=== PATIENT | male | born 1985 | race Hispanic/Latino ===

== ENCOUNTER 2017-05-20 17:32 | Emergency (ER) | payer SELFPAY ==
--- OUTSIDE RECORDS SUMMARY | 2017-05-20 17:34 | XMS REPORT ---
:1985 [facility] Address [address] [place] [address] Care Team Providers Name Role Phone Unavailable Unavailable Unavailable Problems This patient has no known problems. Allergies, Adverse Reactions, Alerts This patient has no known allergies or adverse reactions. Medications This patient has no known medications. Encounters Start End Encounter Admission Attending Care Care Encounter Date/Time Date/Time Type Type Clinicians Facility Department ID 2016-09-30 2016-10-05 Outpatient [facility] [id number] 00:00:00 00:00:00
[2017-05-20] MEDS ORDERED: CYCLOBENZAPRINE 10 MG TAB ONE (20:05)
[2017-05-20] MEDS ORDERED: HYDROCODONE/APAP 10/325 TAB ONE (20:06)
[2017-05-20] MEDS ORDERED: IBUPROFEN 400 MG TAB ONE (20:06)
--- NOTE | 2017-05-20 20:14 | ER ---
Nurse's Notes [facility] Name: Kurtis Albert Jr Age: 32 yrs Sex: Male : 1985 Arrival Date: 05/20/2017 Time: 17:35 Bed 14 Private MD: Diagnosis: Lumbago with sciatica, left side Presentation: 05/20 18:00 Presenting complaint: Patient states: Low back pain that started today at 1500. aj Transition of care: patient was not received from another setting of care. Onset of symptoms was May 20, 2017. Care prior to arrival: None. 18:00 Method Of Arrival: Ambulatory aj 18:00 Acuity: GOGO 4 aj Triage Assessment: 18:02 General: Appears in no apparent distress. comfortable, Behavior is calm, cooperative, aj appropriate for age. Pain: Complains of pain in low back area Pain currently is 8 out of 10 on a pain scale. Neuro: Level of Consciousness is awake, alert, obeys commands, Oriented to person, place, time, situation. Respiratory: Airway is patent Respiratory effort is even, unlabored, Respiratory pattern is regular, symmetrical. Derm: Skin is intact, is healthy with good turgor, Skin is pink, warm \T\ dry. normal. Musculoskeletal: Reports pain in low back area. Historical: - Allergies: 18:02 No Known Allergies; aj - Home Meds: 18:02 None [Active]; aj - PMHx: 18:02 None; aj - PSHx: 18:02 None; aj - Immunization history:: Adult Immunizations up to date. - Social history:: Smoking status: Patient/guardian denies using tobacco. Screenin:23 Abuse screen: Denies threats or abuse. Nutritional screening: No deficits noted. rb1 Tuberculosis screening: No symptoms or risk factors identified. Fall Risk None identified. Assessment: 18:23 General: Appears uncomfortable, Behavior is calm, cooperative, Denies fever. Pain: rb1 Complains of pain in left lower back Pain radiates to left leg Pain currently is 8 out of 10 on a pain scale. Aggravated by repositioning. Neuro: Level of Consciousness is awake, alert, obeys commands, Oriented to person, place, time, situation. Cardiovascular: Capillary refill < 3 seconds is brisk in bilateral fingers. Respiratory: Airway is patent Respiratory effort is even, unlabored, Respiratory pattern is regular, symmetrical. GI: No signs and/or symptoms were reported involving the gastrointestinal system. : No signs and/or symptoms were reported regarding the genitourinary system. Derm: Skin is pink, warm \T\ dry. Musculoskeletal: Range of motion: intact in all extremities. 19:15 Reassessment: Patient appears in no apparent distress at this time. Patient and/or bs1 family updated on plan of care and expected duration. Pain level reassessed. Patient is alert, oriented x 3, equal unlabored respirations, skin warm/dry/pink. Report received from NAHUN Lopez. Patient still c/o pain. Pending orders from ROSE GRADING SUPERVISOR. Vital Signs: 18:02 BP 134 / 92; Pulse 57; Resp 18; Temp 97.6; Pulse Ox 98% on R/A; Weight 122.47 kg; aj Height 5 ft. 10 in. (177.80 cm); Pain 8/10; 19:15 BP 139 / 86; Pulse 58; Resp 17; Pulse Ox 99% on R/A; Pain 6/10; bs1 18:02 Body Mass Index 38.74 (122.47 kg, 177.80 cm) aj ED Course: 17:35 Patient arrived in ED. rg4 18:01 Triage completed. aj 18:02 Arm band placed on left wrist. Patient placed in waiting room, Patient notified of wait aj time. 18:23 Patient has correct armband on for positive identification. Bed in low position. Call rb1 light in reach. Side rails up X 1. Pulse ox on. NIBP on. 18:25 Jessica Penaloza, NAHUN is Primary Nurse. rb1 18:45 Aashish Valdez NP is PHCP. pm1 18:45 Jorge L Rosas MD is Attending Physician. pm1 18:57 Report given to NAHUN Green. rb1 20:24 No provider procedures requiring assistance completed. Patient did not have IV access ao during this emergency room visit. Administered Medications: 19:49 Drug: Flexeril 10 mg Route: PO; ao 20:25 Follow up: Response: No adverse reaction ao 19:49 Drug: [place] 10 mg-325 mg 1 tabs Route: PO; ao 20:25 Follow up: Response: No adverse reaction ao 19:49 Drug: Ibuprofen 800 mg Route: PO; ao 20:25 Follow up: Response: No adverse reaction ao Outcome: 20:14 Discharge ordered by . pm1 20:24 Discharged to home ambulatory. ao 20:24 Condition: stable 20:24 Discharge instructions given to patient, Instructed on discharge instructions, follow up and referral plans. Demonstrated understanding of instructions, follow-up care, medications, Prescriptions given X 3. 20:25 Patient left the ED. ao Signatures: Britney Gómez, RN RN Jessica García RN RN rb1 Peter Tidwell RN RN ao Aashish Valdez, ROSE GRADING SUPERVISOR ROSE GRADING SUPERVISOR pm1 Kylie Alfredo rg4 Yareli Robison RN RN bs1
--- NOTE | 2017-05-20 20:15 | EDPHYS ---
Physician Documentation [facility] Name: Kurtis Albert Jr Age: 32 yrs Sex: Male : 1985 Arrival Date: 05/20/2017 Time: 17:35 Bed 14 Private MD: ED Physician Jorge L Rosas HPI: 05/20 20:00 This 32 yrs old Male presents to ER via Ambulatory with complaints of Low Back pm1 Pain. 20:00 The symptoms are located in the left low back. radiation to left lower leg. Associated pm1 signs and symptoms: Pertinent negatives: abdominal pain, chest pain, fever, incontinence, shortness of breath. Patient with a history of chronic back pain that has some flares. Patient reports onset of pain this morning and he wanted to get ahead of the pain before it got worse. Patient with the same presentation of back pain as the past, which is left lower back pain with radiation to left lower leg. Pain aggravated by twisting and bending. Historical: - Allergies: 18:02 No Known Allergies; aj - Home Meds: 18:02 None [Active]; aj - PMHx: 18:02 None; aj - PSHx: 18:02 None; aj - Immunization history:: Adult Immunizations up to date. - Social history:: Smoking status: Patient/guardian denies using tobacco. ROS: 20:00 Constitutional: Negative for fever, chills, and weight loss, Eyes: Negative for injury, pm1 pain, redness, and discharge, ENT: Negative for injury, pain, and discharge, Neck: Negative for injury, pain, and swelling, Cardiovascular: Negative for chest pain, palpitations, and edema, Respiratory: Negative for shortness of breath, cough, wheezing, and pleuritic chest pain, Abdomen/GI: Negative for abdominal pain, nausea, vomiting, diarrhea, and constipation. 20:00 : Negative for injury, bleeding, discharge, and swelling, MS/Extremity: Negative for injury and deformity, Skin: Negative for injury, rash, and discoloration, Neuro: Negative for headache, weakness, numbness, tingling, and seizure. 20:00 Back: Positive for of the left low back, pain. Exam: 20:00 Constitutional: This is a well developed, well nourished patient who is awake, alert, pm1 and in no acute distress. Head/Face: Normocephalic, atraumatic. Eyes: Pupils equal round and reactive to light, extra-ocular motions intact. Lids and lashes normal. Conjunctiva and sclera are non-icteric and not injected. Cornea within normal limits. Periorbital areas with no swelling, redness, or edema. ENT: Nares patent. No nasal discharge, no septal abnormalities noted. Tympanic membranes are normal and external auditory canals are clear. Oropharynx with no redness, swelling, or masses, exudates, or evidence of obstruction, uvula midline. Mucous membranes moist. Neck: Trachea midline, no thyromegaly or masses palpated, and no cervical lymphadenopathy. Supple, full range of motion without nuchal rigidity, or vertebral point tenderness. No Meningismus. Chest/axilla: Normal chest wall appearance and motion. Nontender with no deformity. No lesions are appreciated. Cardiovascular: Regular rate and rhythm with a normal S1 and S2. No gallops, murmurs, or rubs. Normal PMI, no JVD. No pulse deficits. Respiratory: Lungs have equal breath sounds bilaterally, clear to auscultation and percussion. No rales, rhonchi or wheezes noted. No increased work of breathing, no retractions or nasal flaring. Abdomen/GI: Soft, non-tender, with normal bowel sounds. No distension or tympany. No guarding or rebound. No evidence of tenderness throughout. 20:00 Skin: Warm, dry with normal turgor. Normal color with no rashes, no lesions, and no evidence of cellulitis. MS/ Extremity: Pulses equal, no cyanosis. Neurovascular intact. Full, normal range of motion. 20:00 Back: pain, of the left low back, ROM is painful, with rotation to the right, with rotation to the left, with flexion, normal spinal alignment noted. 20:00 Neuro: Orientation: is normal, Motor: is normal, moves all fours, strength is normal, strength is 5/5 in all extremities. Vital Signs: 18:02 BP 134 / 92; Pulse 57; Resp 18; Temp 97.6; Pulse Ox 98% on R/A; Weight 122.47 kg; aj Height 5 ft. 10 in. (177.80 cm); Pain 8/10; 19:15 BP 139 / 86; Pulse 58; Resp 17; Pulse Ox 99% on R/A; Pain 6/10; bs1 18:02 Body Mass Index 38.74 (122.47 kg, 177.80 cm) rigoberto MDM: 18:45 Patient medically screened. pm1 20:13 Data reviewed: vital signs. Data interpreted: Pulse oximetry: on room air is 99 %. pm1 Interpretation: normal. Counseling: I had a detailed discussion with the patient and/or guardian regarding: the historical points, exam findings, and any diagnostic results supporting the discharge/admit diagnosis. Medication response: pain improvement with medications given in the ER. Administered Medications: 19:49 Drug: Flexeril 10 mg Route: PO; ao 20:25 Follow up: Response: No adverse reaction ao 19:49 Drug: [place] 10 mg-325 mg 1 tabs Route: PO; ao 20:25 Follow up: Response: No adverse reaction ao 19:49 Drug: Ibuprofen 800 mg Route: PO; ao 20:25 Follow up: Response: No adverse reaction ao Disposition: 05/21 07:41 Co-signature as Attending Physician, Jorge L Rosas MD I agree with the assessment and waqar plan of care. Disposition: 05/20/17 20:14 Discharged to Home. Impression: Lumbago with sciatica, left side. - Condition is Stable. - Discharge Instructions: Back Pain, Adult, Sciatica. - Prescriptions for Naprosyn 500 mg Oral Tablet - take 1 tablet by ORAL route 2 times per day take with food; 30 tablet. Tylenol- Codeine #3 300-30 mg Oral Tablet - take 2 tablets by ORAL route every 6 hours As needed; 20 tablet. Cyclobenzaprine 10 mg Oral Tablet - take 1 tablet by ORAL route every 8 hours As needed; 30 tablet. - Medication Reconciliation Form, Thank You Letter, Prescription Opioid Use form. - Follow up: Emergency Department; When: As needed; Reason: Worsening of condition. Follow up: Private Physician; When: 2 - 3 days; Reason: Recheck today's complaints, Continuance of care, Re-evaluation by your physician. - Problem is new. - Symptoms have improved. Signatures: Britney Gómez RN Jorge L Paula MD MD cha Ortiz, Alex RN Aashish Bautista, YOSELYN MEDICAL RECORD CONSULTANT pm1
== END 2017-05-20 20:25 | disposition home or self-care (01) ==
LOC: ER 17:32
DX: M54.42 Lumbago with sciatica, left side (principal)
CPT/HCPCS: 99283

== ENCOUNTER 2017-06-09 15:46 | Emergency (ER) | payer SELFPAY ==
--- OUTSIDE RECORDS SUMMARY | 2017-06-09 15:48 | XMS REPORT ---
:1985 [facility] Address [address] [place] [address] Care Team Providers Name Role Phone Unavailable Unavailable Unavailable Problems This patient has no known problems. Allergies, Adverse Reactions, Alerts This patient has no known allergies or adverse reactions. Medications This patient has no known medications. Encounters Start End Encounter Admission Attending Care Care Encounter Date/Time Date/Time Type Type Clinicians Facility Department ID 2016-09-30 2016-10-05 Outpatient [facility] [id number] 00:00:00 00:00:00
[2017-06-09] MEDS ORDERED: TRAMADOL HCL 50 MG TAB ONE (17:28)
--- NOTE | 2017-06-09 18:01 | EDPHYS ---
Physician Documentation [facility] Name: Kurtis Albert Jr Age: 32 yrs Sex: Male : 1985 Arrival Date: 06/09/2017 Time: 15:49 Bed Treatment Private MD: ED Physician Arsenio Wallace HPI: 06/09 17:25 This 32 yrs old Male presents to ER via Ambulatory with complaints of Back pm1 Pain. 17:25 The patient presents with pain that is chronic, with no known mechanism of injury. The pm1 symptoms are located in the low back. Onset: The symptoms/episode began/occurred 2 week(s) ago. bilateral lower legs. Associated signs and symptoms: Pertinent negatives: abdominal pain, chest pain, dysuria, numbness, tingling, vomiting. Chronic back pain with occasional flare up. Patient with complaints of lower back pain onset two weeks ago. Patient with complaints of sore throat onset yesterday with painful swallowing, fever, and body aches.. Historical: - Allergies: 16:01 No Known Allergies; rk2 - Immunization history:: Pneumococcal vaccine is up to date, Flu vaccine is not up to date. - Social history:: Smoking status: Patient/guardian denies using tobacco, never smoked. ROS: 17:25 Eyes: Negative for injury, pain, redness, and discharge. pm1 17:25 Neck: Negative for injury, pain, and swelling, Cardiovascular: Negative for chest pain, palpitations, and edema, Respiratory: Negative for shortness of breath, cough, wheezing, and pleuritic chest pain, Abdomen/GI: Negative for abdominal pain, nausea, vomiting, diarrhea, and constipation. 17:25 : Negative for injury, bleeding, discharge, and swelling, MS/Extremity: Negative for injury and deformity, Skin: Negative for injury, rash, and discoloration, Neuro: Negative for headache, weakness, numbness, tingling, and seizure. 17:25 Constitutional: Positive for body aches, chills, fever, Negative for poor PO intake. 17:25 ENT: Positive for sore throat, Negative for ear pain, rhinorrhea, sinus congestion, sinus pain, dental pain, difficulty swallowing, difficulty handling secretions. 17:25 Back: Positive for Low back pain. Exam: 17:25 Constitutional: This is a well developed, well nourished patient who is awake, alert, pm1 and in no acute distress. Head/Face: Normocephalic, atraumatic. Eyes: Pupils equal round and reactive to light, extra-ocular motions intact. Lids and lashes normal. Conjunctiva and sclera are non-icteric and not injected. Cornea within normal limits. Periorbital areas with no swelling, redness, or edema. 17:25 Neck: Trachea midline, no thyromegaly or masses palpated, and no cervical lymphadenopathy. Supple, full range of motion without nuchal rigidity, or vertebral point tenderness. No Meningismus. Chest/axilla: Normal chest wall appearance and motion. Nontender with no deformity. No lesions are appreciated. Cardiovascular: Regular rate and rhythm with a normal S1 and S2. No gallops, murmurs, or rubs. Normal PMI, no JVD. No pulse deficits. Respiratory: Lungs have equal breath sounds bilaterally, clear to auscultation and percussion. No rales, rhonchi or wheezes noted. No increased work of breathing, no retractions or nasal flaring. Abdomen/GI: Soft, non-tender, with normal bowel sounds. No distension or tympany. No guarding or rebound. No evidence of tenderness throughout. 17:25 ENT: External ear(s): are unremarkable, Ear canal(s): are normal, TM's: are normal, Nose: is normal, Mouth: is normal, Posterior pharynx: is normal, Airway: normal, no evidence of obstruction, patent, Tonsils: bilaterally enlarged, with erythema, with exudate, no ulcerations, peritonsillar mass, is not appreciated, pooling of secretions, is not appreciated. 17:25 Back: pain, is absent, ROM is normal, normal spinal alignment noted, muscle spasm, is appreciated in the left low back and right low back. 17:25 Neuro: Orientation: is normal, Mentation: is normal, Motor: moves all fours, Sensation: is normal, no obvious gross deficits, Deep tendon reflexes are 2+ (normal) in the right patellar, right Achilles, left patellar and left Achilles. Vital Signs: 16:01 BP 128 / 83; Pulse 80; Resp 17; Temp 98.0; Pulse Ox 98% on R/A; rk2 16:01 Weight 131.09 kg; Pain 8/10; rk2 MDM: 16:42 Patient medically screened. pm1 18:00 Data reviewed: vital signs. Data interpreted: Pulse oximetry: on room air is 98 %. pm1 Interpretation: normal. Counseling: I had a detailed discussion with the patient and/or guardian regarding: the historical points, exam findings, and any diagnostic results supporting the discharge/admit diagnosis, lab results, the need for outpatient follow up, to return to the emergency department if symptoms worsen or persist or if there are any questions or concerns that arise at home. 06/09 17:08 Order name: Strep; Complete Time: 18:00 pm1 06/09 17:08 Order name: Flu; Complete Time: 18:00 pm1 Administered Medications: 17:30 Drug: traMADol 50 mg Route: PO; sg Disposition: 06/09/17 18:01 Discharged to Home. Impression: Streptococcal pharyngitis, Low back pain. - Condition is Stable. - Discharge Instructions: Chronic Back Pain, Salt Water Gargle, Strep Throat. - Prescriptions for Amoxicillin 500 mg Oral Capsule - take 1 capsule by ORAL route every 8 hours for 10 days; 30 tablet. Tramadol 50 mg Oral Tablet - take 1 tablet by ORAL route every 8 hours as needed; 12 tablet. - Work release form, Family Work Release, Medication Reconciliation Form, Thank You Letter, Antibiotic Education, Prescription Opioid Use form. - Follow up: Emergency Department; When: As needed; Reason: Worsening of condition. Follow up: Private Physician; When: 2 - 3 days; Reason: Recheck today's complaints, Continuance of care, Re-evaluation by your physician. - Problem is new. - Symptoms have improved. Addendum: 06/10/2017 21:31 Co-signature as Attending Physician, Arsenio Wallace MD. g s Signatures: Dispatcher [employer] EDJan Nagy RN Sagrario Chavis RN Aashish Charles, STOVE INSTALLER STOVE INSTALLER pm1 Arsenio Wallace MD MD gs Kidder, Rhonda, RN RN rk2
--- NOTE | 2017-06-09 18:01 | ER ---
Nurse's Notes [facility] Name: Kurtis Albert Jr Age: 32 yrs Sex: Male : 1985 Arrival Date: 06/09/2017 Time: 15:49 Bed Treatment Private MD: Diagnosis: Streptococcal pharyngitis;Low back pain Presentation: 06/09 15:58 Presenting complaint: Patient states: Pt. c/o of lower back pain, radiating down both rk2 legs... started with one leg. Was seen in ED; however, still having pain. Transition of care: patient was not received from another setting of care. Onset of symptoms was June 09, 2017. Initial Sepsis Screen: Does the patient meet any 2 criteria? No. Patient's initial sepsis screen is negative. Does the patient have a suspected source of infection? No. Patient's initial sepsis screen is negative. Care prior to arrival: None. 15:58 Method Of Arrival: Ambulatory rk2 15:58 Acuity: GOGO 4 rk2 Historical: - Allergies: 16:01 No Known Allergies; rk2 - Immunization history:: Pneumococcal vaccine is up to date, Flu vaccine is not up to date. - Social history:: Smoking status: Patient/guardian denies using tobacco, never smoked. Screenin:30 Abuse screen: Denies threats or abuse. Denies injuries from another. Nutritional sg screening: No deficits noted. Tuberculosis screening: No symptoms or risk factors identified. Never had TB. Fall Risk None identified. Assessment: 16:35 General: Appears in no apparent distress. comfortable, well groomed, well developed, sg well nourished, Behavior is calm, cooperative, appropriate for age. Pain: Complains of pain in back Pain does not radiate. Quality of pain is described as aching, sharp. Neuro: Level of Consciousness is awake, alert, obeys commands, Oriented to person, place, time, situation, Roofing Applicator are equal bilaterally Moves all extremities. Full function Gait is steady, Speech is normal. Cardiovascular: Heart tones S1 S2 present Capillary refill is brisk in bilateral fingers Patient's skin is warm and dry. Chest pain is denied. Respiratory: Airway is patent Respiratory effort is even, unlabored, Respiratory pattern is regular, symmetrical, Breath sounds are clear. GI: No signs and/or symptoms were reported involving the gastrointestinal system. : No signs and/or symptoms were reported regarding the genitourinary system. EENT: No signs and/or symptoms were reported regarding the EENT system. Derm: Skin is intact, is healthy with good turgor, Skin is dry, Skin is normal, Skin temperature is warm. Musculoskeletal: Circulation, motion, and sensation intact. Capillary refill is brisk, in bilateral fingers. Range of motion: Swelling absent Reports pain in back. 16:45 EENT: Nares are clear bilaterally Oral mucosa is moist. Throat is reddened has enlarged sg tonsils on right. Vital Signs: 16:01 BP 128 / 83; Pulse 80; Resp 17; Temp 98.0; Pulse Ox 98% on R/A; rk2 16:01 Weight 131.09 kg; Pain 8/10; rk2 ED Course: 15:49 Patient arrived in ED. mr 16:01 Triage completed. rk2 16:01 Arm band placed on left wrist. rk2 16:30 No provider procedures requiring assistance completed. sg 16:38 Aashish Valdez NP is PHCP. pm1 16:38 Arsenio Wallace MD is Attending Physician. pm1 16:39 Jan Herrera RN is Primary Nurse. sg 16:45 Flu and/or RSV swab sent to lab. Strep swab sent to lab. sg Administered Medications: 17:30 Drug: traMADol 50 mg Route: PO; sg Outcome: 18:01 Discharge ordered by . pm1 18:16 Patient left the ED. iw Signatures: aJn Herrera RN RN sg Rivera, Maria mr Sagrario Funk RN RN Aashish Valdez NP ELECTRICIAN STATION ASSISTANT pm1 Jodie Merida RN RN rk2
== END 2017-06-09 18:16 | disposition home or self-care (01) ==
LOC: ER 15:46
DX: J02.0 Streptococcal pharyngitis (principal); M54.5 Low back pain
CPT/HCPCS: 87081; 87804; 99283

== ENCOUNTER 2017-09-05 19:24 | Emergency (ER) | payer SELFPAY ==
--- OUTSIDE RECORDS SUMMARY | 2017-09-05 19:26 | XMS REPORT | Summary of Care ---
:1985 Author Organization [facility] Address [address] [place] [address]- Encounter [facility] Orestes(FIN) [id number] Date(s): 12/01/14 - 12/01/[address] [address]- Discharge Diagnosis: Acute anxiety Discharge Diagnosis: Cocaine abuse Discharge Diagnosis: Marijuana abuse Discharge Diagnosis: KRISTA (acute kidney injury) Discharge Diagnosis: Benzodiazepine abuse Discharge Diagnosis: Elevated CK Discharge Disposition: Home Attending Physician: Javed Higgins MD Vital Signs Most recent to oldest [Reference Range]: 1 2 3 Height 177.8 cm (12/01/14 2:02 PM) Most recent to oldest [Reference Range]: 1 2 3 Temperature Oral [96.4-99.1 DegF] 99.2 DegF 99.0 DegF *HI* (12/01/14 2:02 PM) (12/01/14 5:34 PM) Most recent to oldest 1 2 3 [Reference Range]: Blood Pressure [90-140/60-90 134/87 mmHg 126/84 mmHg 139/89 mmHg mmHg] (12/01/14 8:44 PM) (12/01/14 5:34 PM) (12/01/14 2:02 PM) Most recent to oldest 1 2 3 [Reference Range]: Respiratory Rate [14-20 18 BRMIN 18 BRMIN 16 BRMIN BRMIN] (12/01/14 8:44 PM) (12/01/14 5:34 PM) (12/01/14 2:02 PM) Most recent to oldest 1 2 3 [Reference Range]: Peripheral Pulse Rate 73 bpm 80 bpm 76 bpm [60-100 bpm] (12/01/14 8:44 PM) (12/01/14 5:34 PM) (12/01/14 2:02 PM) Most recent to oldest [Reference Range]: 1 2 3 Weight 77.273 kg (12/01/14 2:02 PM) Most recent to oldest [Reference Range]: 1 2 3 Body Mass Index 24.44 m2 (12/01/14 2:02 PM) Problem List No data available for this section Allergies, Adverse Reactions, Alerts Substance Reaction Severity Status NKDA Active Medications Ativan 1 mg, 0.5 mL, Route: IVP, Drug form: INJ, ONCE, Dosing Weight 77.273, kg, Priority: STAT, Start date: 12/01/14 17:03:00, Stop date: 12/01/14 17:03:00 Notes: (Same as: Ativan) Start Date: 12/01/14 Stop Date: 12/01/14 Status: CompletedNS (Bolus) IV 1,000 mL, 1,000 ml/hr, Infuse Over: 1 hr, Route: IV, 1,000, Drug form: INJ, ONCE , Priority: STAT, Dosing Weight 77.273 kg, Start date: 12/01/14 16:37:00, Duration: 1 doses or times, Stop date: 12/02/1515:37:00 Start Date: 12/01/14 Stop Date: 12/01/14 Status: Completedpotassium chloride 20 mEq oral tablet, extended release 20 mEq, 1 tab, Route: PO, Drug form: ERTAB, ONCE, Dosing Weight 77.273, kg, Priority: STAT, Start date: 12/01/14 17:57:00, Stop date: 12/01/14 17:57:00 Notes: (Same as: K-Dur 20)"Do Not Crush" With food and full glass of water Start Date: 12/01/14 Stop Date: 12/01/14 Status: CompletedSodium Chloride 0.9% (Bolus) IV 1,000 mL, 1,000 ml/hr, Infuse Over: 1 hr, Route: IV, 1,000, Drug form: INJ, ONCE , Priority: STAT, Dosing Weight 77.273 kg, Start date: 12/01/14 17:58:00, Duration: 1 doses or times, Stop date: 12/01/1516:58:00 Start Date: 12/01/14 Stop Date: 12/01/14 Status: Completed Results ELECTROLYTES Most recent to oldest [Reference Range]: 1 2 Sodium Lvl [135-145 mEq/L] 135 mEq/L (12/01/14 2:10 PM) Potassium Lvl [3.5-5.1 mEq/L] 3.2 mEq/L *LOW* (12/01/14 2:10 PM) Chloride Lvl [95-109 mEq/L] 100 mEq/L (12/01/14 2:10 PM) CO2 [24-32 mEq/L] 25 mEq/L (12/01/14 2:10 PM) AGAP [10.0-20.0 mEq/L] 13.2 mEq/L (12/01/14 2:10 PM) CHEM PANEL Most recent to oldest [Reference Range]: 1 2 Creatinine Lvl [0.5-1.4 mg/dL] 1.6 mg/dL *HI* (12/01/14 2:10 PM) eGFR 58 mL/min/1.73m2 1 *NA* (12/01/14 2:10 PM) BUN [7-22 mg/dL] 22 mg/dL (12/01/14 2:10 PM) B/C Ratio [6-25] 14 (12/01/14 2:10 PM) Glucose Lvl [70-99 mg/dL] 134 mg/dL *HI* (12/01/14 2:10 PM) Total Protein [6.4-8.4 g/dL] 9.2 g/dL *HI* (12/01/14 2:10 PM) Albumin Lvl [3.5-5.0 g/dL] 4.9 g/dL (12/01/14 2:10 PM) Globulin [2.0-4.0 g/dL] 4.3 g/dL *HI* (12/01/14 2:10 PM) A/G Ratio [0.7-1.6] 1.1 (12/01/14 2:10 PM) Calcium Lvl [8.5-10.5 mg/dL] 10.4 mg/dL (12/01/14 2:10 PM) ALT [0-65 unit/L] 46 unit/L (12/01/14 2:10 PM) AST [0-37 unit/L] 57 unit/L *HI* (12/01/14 2:10 PM) Alk Phos [39-136 unit/L] 115 unit/L (12/01/14 2:10 PM) Bili Total [0.2-1.3 mg/dL] 0.7 mg/dL (12/01/14 2:10 PM) 1Result Comment: The eGFR is calculated using the CKD-EPI formula. In most young , healthy individualsthe eGFR will be >90 mL/min/1.73m2. The eGFR declines with age. An eGFR of 60-89 may be normal in some populations, particularly the elderly, for whom the CKD-EPI formula has not been extensively validated. Use of the eGFR is not recommended in the following populations: Individuals with unstable creatinine concentrations, including patients and those with serious co-morbid conditions. Patients with extremes in muscle mass or diet. The data above are obtained from the National Kidney Disease Education Program ( NKDEP) which additionally recommends that when the eGFR is used in patients with extremes of body mass index for purposesof drug dosing, the eGFR should be multiplied by the estimated BMI.CARDIAC ENZYMES Most recent to oldest [Reference Range]: 1 2 Total CK [12-191 unit/L] 1758 unit/L 2623 unit/L *HI* *HI* (12/01/14 7:30 PM) (12/01/14 2:10 PM) DRUG SCREEN Most recent to oldest [Reference Range]: 1 2 U Amph Scr [Negative] Negative *NA* (12/01/14 2:10 PM) U Gayle Scr [Negative] Negative *NA* (12/01/14 2:10 PM) U Benzodia Scr [Negative] Positive *ABN* (12/01/14 2:10 PM) U Cocaine Scr [Negative] Positive *ABN* (12/01/14 2:10 PM) U Opiate Scr [Negative] Negative *NA* (12/01/14 2:10 PM) U Phencyc Scr [Negative] Negative *NA* (12/01/14 2:10 PM) U Cannab Scr [Negative] Positive *ABN* (12/01/14 2:10 PM) UDS Note See Note (12/01/14 2:10 PM) URINE AND STOOL Most recent to oldest [Reference Range]: 1 2 UA Turbidity [Clear] Marked *ABN* (12/01/14 2:10 PM) UA Color Awilda *NA* (12/01/14 2:10 PM) UA pH [5.0-8.0] 5.0 (12/01/14 2:10 PM) UA Spec Grav [<=1.030] 1.046 *HI* (12/01/14 2:10 PM) UA Glucose [Negative mg/dL] Negative mg/dL *NA* (12/01/14 2:10 PM) UA Blood [Negative] Small *ABN* (12/01/14 2:10 PM) UA Ketones Negative *NA* (12/01/14 2:10 PM) UA Protein [Negative mg/dL] >=300 mg/dL *ABN* (12/01/14 2:10 PM) UA Urobilinogen [0.1-1.0 mg/dL] <=1.0 mg/dL *NA* (12/01/14 2:10 PM) UA Bili [Negative] Negative *NA* (12/01/14 2:10 PM) UA Leuk Est [Negative] Negative (12/01/14 2:10 PM) UA Nitrite [Negative] Negative (12/01/14 2:10 PM) UA WBC [0-5 /HPF] 1 /HPF (12/01/14 2:10 PM) UA RBC [0-2 /HPF] 2 /HPF (12/01/14 2:10 PM) UA Sq Epi None Seen *NA* (12/01/14 2:10 PM) UA Mucus [None Seen /LPF] Many /LPF *ABN* (12/01/14 2:10 PM) HEMATOLOGY Most recent to oldest [Reference Range]: 1 2 WBC [3.7-10.4 K/CMM] 12.4 K/CMM *HI* (12/01/14 2:10 PM) RBC [4.70-6.10 M/CMM] 5.96 M/CMM (12/01/14 2:10 PM) Hgb [14.0-18.0 g/dL] 16.5 g/dL (12/01/14 2:10 PM) Hct [42.0-54.0 %] 50.6 % (12/01/14 2:10 PM) MCV [80.0-94.0 fL] 84.8 fL (12/01/14 2:10 PM) MCH [27.0-31.0 pg] 27.7 pg (12/01/14 2:10 PM) MCHC [32.0-36.0 g/dL] 32.7 g/dL (12/01/14 2:10 PM) RDW [11.5-14.5 %] 13.5 % (12/01/14 2:10 PM) Platelet [133-450 K/CMM] 255 K/CMM (12/01/14 2:10 PM) MPV [7.4-10.4 fL] 10.1 fL (12/01/14 2:10 PM) Segs [45.0-75.0 %] 68.4 % (12/01/14 2:10 PM) Lymphocytes [20.0-40.0 %] 22.9 % (12/01/14 2:10 PM) Monocytes [2.0-12.0 %] 8.3 % (12/01/14 2:10 PM) Eosinophils [0.0-4.0 %] 0.1 % (12/01/14 2:10 PM) Basophils [0.0-1.0 %] 0.3 % (12/01/14 2:10 PM) Segs-Bands # [1.5-8.1 K/CMM] 8.5 K/CMM *HI* (12/01/14 2:10 PM) Lymphocytes # [1.0-5.5 K/CMM] 2.8 K/CMM (12/01/14 2:10 PM) Monocytes # [0.0-0.8 K/CMM] 1.0 K/CMM *HI* (12/01/14 2:10 PM) Eosinophils # [0.0-0.5 K/CMM] 0.0 K/CMM (12/01/14 2:10 PM) Basophils # [0.0-0.2 K/CMM] 0.0 K/CMM (12/01/14 2:10 PM) Immunizations No data available for this section Procedures No data available for this section Social History Social History Type Response Smoking Status Never smoker; Exposure to Tobacco Smoke None; Cigarette Smoking Last 365 Days No; Reg Smoking Cessation Counseling No Assessment and Plan No data available for this section
--- OUTSIDE RECORDS SUMMARY | 2017-09-05 19:26 | XMS REPORT | Summary of Care ---
:1985 Author Organization [facility] Address [address] [place], [place] [address]- Encounter [facility] Orestes(LENI) [id number] Date(s): 03/29/16 - 03/29/16 [facility] [address] [place] [address]- Discharge Diagnosis: Wrist pain, right Discharge Disposition: Home or Self Care Attending Physician: Sadia Galicia MD Vital Signs Most recent to oldest [Reference Range]: 1 2 Height 177.8 cm (03/29/16 8:59 AM) Temperature Oral [96.4-99.1 DegF] 98.2 DegF 98.3 DegF (03/29/16 12:00 PM) (03/29/16 8:59 AM) Blood Pressure [90-140/60-90 mmHg] 125/90 mmHg 132/85 mmHg (03/29/16 12:00 PM) (03/29/16 8:59 AM) Respiratory Rate [14-20 BRMIN] 18 BRMIN 18 BRMIN (03/29/16 12:00 PM) (03/29/16 8:59 AM) Peripheral Pulse Rate [60-100 bpm] 82 bpm 85 bpm (03/29/16 12:00 PM) (03/29/16 8:59 AM) Weight 96.364 kg (03/29/16 8:59 AM) Body Mass Index 30.48 m2 (03/29/16 8:59 AM) Problem List No data available for this section Allergies, Adverse Reactions, Alerts Substance Reaction Severity Status NKDA Active Medications ibuprofen 800 mg, 2 tab, Route: PO, Drug form: TAB, ONCE, Dosing Weight 96.364, kg, Priority: STAT, Start date: 03/29/16 10:48:00 FOOD WRITER, Stop date: 03/29/16 10:48:00 FOOD WRITER Notes: (Same as: Motrin)"Do Not Crush" Give with food. Start Date: 03/29/16 Stop Date: 03/29/16 Status: Completedmorphine Sulfate 4 mg, Route: IM, ONCE, Dosing Weight 96.364, kg, Priority: STAT, Start date: 12/03 11:46:00 FOOD WRITER, Stop date: 03/29/16 11:46:00 FOOD WRITER Start Date: 03/29/16 Stop Date: 03/29/16 Status: CompletedNorco 5/325 oral tablet 1 tab, Route: PO, Drug Form: TAB, Dosing Weight 96.364, kg, ONCE, STAT, Start date: 03/29/16 10:48:00 FOOD WRITER, Stop date: 03/29/16 10:48:00 FOOD WRITER Notes: (Same as: [place] 325/5) Do not exceed 4gm/day of acetaminophen. Start Date: 03/29/16 Stop Date: 03/29/16 Status: Completedtramadol 50 mg oral tablet 50 mg=1 tab, PO, Q6H, PRN Pain, # 12 tab, 0 Refill(s) Start Date: 03/29/16 Stop Date: 03/30/17 Status: Ordered Results No data available for this section Immunizations No data available for this section Procedures No data available for this section Social History Social History Type Response Smoking Status Never smoker; Exposure to Tobacco Smoke None; Cigarette Smoking Last 365 Days No; Reg Smoking Cessation Counseling No Assessment and Plan No data available for this section
--- OUTSIDE RECORDS SUMMARY | 2017-09-05 19:26 | XMS REPORT ---
:1985 Author Organization [facility] Address [address] [place] [address] Care Team Providers Name Role Phone Unavailable Unavailable Unavailable Problems This patient has no known problems. Allergies, Adverse Reactions, Alerts This patient has no known allergies or adverse reactions. Medications This patient has no known medications. Encounters Start End Encounter Admission Attending Care Care Encounter Date/Time Date/Time Type Type Clinicians Facility Department ID 2016-09-30 2016-10-05 Outpatient [facility] [id number] 00:00:00 00:00:00
[2017-09-05] MEDS ORDERED: LIDOCAINE 1% W/EPI 1:100,000 MDV 50 ML VIAL ONE (20:12)
[2017-09-05] MEDS ORDERED: BUPIVACAINE 0.5% PF 10 ML VIAL ONE (20:12)
--- NOTE | 2017-09-05 20:53 | ER ---
Nurse's Notes [facility] Name: Kurtis Albert Jr Age: 32 yrs Sex: Male : 1985 Arrival Date: 09/05/2017 Time: 19:25 Bed 23 Private MD: Diagnosis: Jaw pain-Left Lower Molar;Cellulitis of buttock-Left Presentation: 09/05 19:43 Presenting complaint: Patient states: that he has a ish size abscess to right groin ea area that has been there 2 days. Also has 2 areas of swollen red tender areas to back at the belt line that have been there off and on for a while. Is also complaining of left lower tooth pain due to broken tooth. States that there was an abscess there and it opened up and he just spit out the pus. Transition of care: patient was not received from another setting of care. Onset of symptoms was August 2017. Risk Assessment: Do you want to hurt yourself or someone else? Patient reports no desire to harm self or others. Initial Sepsis Screen: Does the patient meet any 2 criteria? No. Patient's initial sepsis screen is negative. Does the patient have a suspected source of infection? No. Patient's initial sepsis screen is negative. Care prior to arrival: Medication(s) given: Tylenol, last yesterday. 19:43 Method Of Arrival: Ambulatory ea 19:43 Acuity: GOGO 3 ea Triage Assessment: 20:00 General: Appears in no apparent distress. comfortable, well groomed, well developed, kr2 well nourished, Behavior is calm, cooperative, appropriate for age. Historical: - Allergies: 19:48 No Known Allergies; ea - Home Meds: 19:48 Zantac 75 mg Oral 1 cap once daily [Active]; ea - PMHx: 19:48 GERD; ea - PSHx: 19:48 None; ea - Immunization history:: Last tetanus immunization: up to date. - Social history:: Smoking status: Patient/guardian denies using tobacco. - Ebola Screening: : Patient negative for fever greater than or equal to 101.5 degrees Fahrenheit, and additional compatible Ebola Virus Disease symptoms Patient denies exposure to infectious person Patient denies travel to an Ebola-affected area in the 21 days before illness onset. Screenin:00 Abuse screen: Denies threats or abuse. Denies injuries from another. Nutritional kr2 screening: No deficits noted. Tuberculosis screening: No symptoms or risk factors identified. Fall Risk None identified. Assessment: 20:00 General: Appears in no apparent distress. comfortable, well groomed, well developed, kr2 well nourished, Behavior is calm, cooperative, appropriate for age. Pain: Complains of pain in mouth, waist and right thigh Pain Quality of pain is described as aching, tender, Is continuous, Alleviated by rest, Aggravated by eating, increased activity. Neuro: Level of Consciousness is awake, alert, obeys commands, Oriented to person, place, time, situation, Appropriate for age. Cardiovascular: Capillary refill < 3 seconds in bilateral fingers Patient's skin is warm and dry. Respiratory: Airway is patent Respiratory effort is even, unlabored, Respiratory pattern is regular, symmetrical. GI: Abdomen is flat, non-distended. EENT: Oral mucosa is moist. Poor dentition noted. Derm: Skin is intact, is healthy with good turgor. Musculoskeletal: Circulation, motion, and sensation intact. Vital Signs: 19:48 BP 141 / 94; Pulse 70; Resp 20; Temp 98.7(O); Pulse Ox 97% on R/A; Weight 122.47 kg ea (R); Height 5 ft. 10 in. (177.80 cm) (R); Pain 8/10; 19:48 Body Mass Index 38.74 (122.47 kg, 177.80 cm) ea ED Course: 19:25 Patient arrived in ED. am2 19:47 Triage completed. ea 19:51 Arm band placed on Patient placed in an exam room, on a stretcher. ea 19:52 Jorge L Gutierrez PA is PHCP. cp 19:52 Shawn Collado MD is Attending Physician. cp 20:00 Patient has correct armband on for positive identification. Bed in low position. Call kr2 light in reach. Side rails up X 1. Pulse ox on. NIBP on. Door closed. Warm blanket given. Head of bed elevated. 20:06 Gloria Davey, NAHUN is Primary Nurse. kr2 20:51 Fish Taylor DDS is Referral Physician. cp 21:15 No provider procedures requiring assistance completed. Patient did not have IV access kr2 during this emergency room visit. Administered Medications: 21:00 Drug: Lidocaine-Epinephrine -1%: (1:100,000) 5 ml {Note: Given by PA. Viji} Volume: kr2 20 ml; Route: Infiltration; 21:15 Follow up: Response: No adverse reaction kr2 21:00 Drug: Marcaine (0.5 %) 5 ml {Note: Given by PA. Josse} Volume: 10 ml; Route: kr2 Infiltration; 21:15 Follow up: Response: No adverse reaction kr2 21:04 Drug: Hydrocodone-Acetaminophen (7.5 mg-325 mg) 1 tabs Route: PO; rv 21:05 Follow up: Response: Medication administered at discharge. rv 21:15 Follow up: Response: Medication administered at discharge. kr2 21:15 Follow up: Response: Medication administered at discharge. kr2 21:04 Drug: Ibuprofen 800 mg Route: PO; rv 21:04 Follow up: Response: Medication administered at discharge. rv Outcome: 20:52 Discharge ordered by MD. cp 21:15 Discharged to home ambulatory, with family. kr2 21:15 Condition: good 21:15 Discharge instructions given to patient, Instructed on discharge instructions, follow up and referral plans. medication usage, Demonstrated understanding of instructions, follow-up care, medications, Prescriptions given X 1. 21:27 Patient left the ED. kr2 Signatures: Jorge L Gutierrez PA PA cp Moreno, Amanda am2 Sharmin Sheppard RN Gloria Sharp ea, RN RN kr2 Eric Madison RN RN rv Corrections: (The following items were deleted from the chart) 21:15 21:00 Marcaine (0.5 %) 5 ml 10 ml Infiltration 10 ml kr2 kr2
--- NOTE | 2017-09-05 20:53 | EDPHYS ---
Physician Documentation [facility] Name: Kurtis Albert Jr Age: 32 yrs Sex: Male : 1985 Arrival Date: 09/05/2017 Time: 19:25 Bed 23 Private MD: ED Physician Shawn Collado HPI: 09/05 20:00 This 32 yrs old Male presents to ER via Ambulatory with complaints of Boil. cp 20:00 the patient presents with a swollen area of the buttocks and groin area. cp 20:00 Description: swollen, tense. Onset: The symptoms/episode began/occurred 2 day(s) ago. cp 20:05 The patient presents with pain, swelling, drainage. The problem is located in the left cp lower molar. Duration: The symptoms are continuous, and are unchanged since they started. Associated signs and symptoms: Pertinent positives: pain, swelling. Historical: - Allergies: 19:48 No Known Allergies; ea - Home Meds: 19:48 Zantac 75 mg Oral 1 cap once daily [Active]; ea - PMHx: 19:48 GERD; ea - PSHx: 19:48 None; ea - Immunization history:: Last tetanus immunization: up to date. - Social history:: Smoking status: Patient/guardian denies using tobacco. - Ebola Screening: : Patient negative for fever greater than or equal to 101.5 degrees Fahrenheit, and additional compatible Ebola Virus Disease symptoms Patient denies exposure to infectious person Patient denies travel to an Ebola-affected area in the 21 days before illness onset. ROS: 20:10 All other systems are negative. cp 20:10 Constitutional: Negative for fever, chills, and weight loss. cp 20:10 ENT: Positive for dental pain, Gum pain left lower jaw pain, Negative for drainage from ear(s), ear pain, sore throat, difficulty swallowing, difficulty handling secretions. 20:10 Skin: Positive for swelling, of the buttocks and groin area. Exam: 20:15 Constitutional: The patient appears in no acute distress, alert, awake, non-toxic, well cp developed, well nourished. 20:15 Head/Face: Normocephalic, atraumatic. cp 20:15 Eyes: Periorbital structures: appear normal, Conjunctiva: normal, no exudate, no injection, Sclera: no appreciated abnormality, Lids and lashes: appear normal, bilaterally. 20:15 ENT: External ear(s): are unremarkable, Ear canal(s): are normal, clear, TM's: bulging, is not appreciated, bilaterally, dullness, bilaterally, erythema, is not appreciated, bilaterally, Nose: is normal, Mouth: Lips: moist, Oral mucosa: moist, Gums: on the left lower outer gumline, mild swelling and erythema, Tongue: is normal, abscess, is not appreciated, Posterior pharynx: is normal, airway is patent, no erythema, no exudate, Dental exam: dental caries, that is mild, diffusely, fractured teeth are noted, specifically the lower left third molar (#17) and lower left second molar (#18), pain, that is moderate, specifically in the lower left third molar (#17) and lower left second molar (#18), Voice: is normal. 20:15 Neck: ROM/movement: is normal, is supple, without pain, no range of motions limitations, no nuchal rigidity, Lymph nodes: no appreciated lymphadenopathy. 20:15 Chest/axilla: Inspection: normal, Palpation: is normal, no crepitus, no tenderness. 20:15 Cardiovascular: Rate: normal, Rhythm: regular. 20:15 Respiratory: the patient does not display signs of respiratory distress, Respirations: normal, no use of accessory muscles, no retractions, no splinting, no tachypnea. 20:15 Abdomen/GI: Exam negative for discomfort, distension, guarding, Inspection: abdomen appears normal. 20:15 Back: pain, is absent, ROM is normal. 20:15 Skin: abscess, of the buttocks, minimal, area pierced with 18 gauge needle and no discharge expressed, cellulitis, that is mild, irregular, on the buttocks. Vital Signs: 19:48 BP 141 / 94; Pulse 70; Resp 20; Temp 98.7(O); Pulse Ox 97% on R/A; Weight 122.47 kg ea (R); Height 5 ft. 10 in. (177.80 cm) (R); Pain 8/10; 19:48 Body Mass Index 38.74 (122.47 kg, 177.80 cm) ea MDM: 19:53 Patient medically screened. cp 20:00 Differential diagnosis: abscess, cellulitis, insect bite, dental caries, dental cp abscess, pericoronitis. 20:50 Data reviewed: vital signs, nurses notes, and as a result, I will discharge patient. cp Counseling: I had a detailed discussion with the patient and/or guardian regarding: the historical points, exam findings, and any diagnostic results supporting the discharge/admit diagnosis, the need for outpatient follow up, a dentist, a family practitioner. 09/05 20:01 Order name: I\T\D Setup; Complete Time: 20:14 cp Administered Medications: 21:00 Drug: Lidocaine-Epinephrine -1%: (1:100,000) 5 ml {Note: Given by PA. Viji} Volume: kr2 20 ml; Route: Infiltration; 21:15 Follow up: Response: No adverse reaction kr2 21:00 Drug: Marcaine (0.5 %) 5 ml {Note: Given by PA. Josse} Volume: 10 ml; Route: kr2 Infiltration; 21:15 Follow up: Response: No adverse reaction kr2 21:04 Drug: Hydrocodone-Acetaminophen (7.5 mg-325 mg) 1 tabs Route: PO; rv 21:05 Follow up: Response: Medication administered at discharge. rv 21:15 Follow up: Response: Medication administered at discharge. kr2 21:15 Follow up: Response: Medication administered at discharge. kr2 21:04 Drug: Ibuprofen 800 mg Route: PO; rv 21:04 Follow up: Response: Medication administered at discharge. rv Disposition: 09/05/17 20:52 Discharged to Home. Impression: Jaw pain - Left Lower Molar, Cellulitis of buttock - Left. - Condition is Stable. - Discharge Instructions: Cellulitis, Adult, Dental Pain, Hidradenitis Suppurativa. - Prescriptions for Clindamycin HCl 300 mg Oral Capsule - take 1 capsule by ORAL route every 6 hours for 10 days; 40 capsule. Naprosyn 500 mg Oral Tablet - take 1 tablet by ORAL route 2 times per day take with food; 20 tablet. Tramadol 50 mg Oral Tablet - take 1 tablet by ORAL route every 8 hours as needed; 12 tablet. - Medication Reconciliation Form, Thank You Letter, Antibiotic Education, Prescription Opioid Use form. - Follow up: Private Physician; When: 2 - 3 days; Reason: Recheck today's complaints. Follow up: Fish Taylor DDS; When: 2 - 3 days; Reason: left lower tooth pain. - Problem is new. - Symptoms have improved. Addendum: 09/10/2017 07:28 Co-signature as Attending Physician, Shawn Collado MD I agree with the assessment and w a plan of care. Signatures: Jorge L Gutierrez PA PA cp Antunez, Elena, RN Shawn Olea ea, MD MD wa Reaves, Karey RN RN kr2 Eric Madison RN RN rv Corrections: (The following items were deleted from the chart) 09/05 21:27 20:52 09/05/2017 20:52 Discharged to Home. Impression: Jaw pain - Left Lower Molar; kr2 Cellulitis of buttock - Left. Condition is Stable. Forms are Medication Reconciliation Form, Thank You Letter, Antibiotic Education, Prescription Opioid Use. Follow up: Private Physician; When: 2 - 3 days; Reason: Recheck today's complaints. Follow up: Fish Taylor; When: 2 - 3 days; Reason: left lower tooth pain. Problem is new. Symptoms have improved. cp 09/06 16:41 16:37 the patient presents with a swollen area of the buttocks and groin, cp cp 16:41 16:37 Description: swollen, tender, cp cp 16:41 16:37 Onset: The symptoms/episode began/occurred 2 day(s) ago, cp cp 16:41 16:37 Associated signs and symptoms: Pertinent negatives: discharge, drainage, fever, cpcp
[2017-09-05] MEDS ORDERED: IBUPROFEN 400 MG TAB ONE (21:01)
[2017-09-05] MEDS ORDERED: HYDROCODONE/APAP 7.5/325 MG TAB ONE (21:01)
== END 2017-09-05 21:27 | disposition home or self-care (01) ==
LOC: ER 19:24
DX: L03.317 Cellulitis of buttock (principal); R68.84 Jaw pain
CPT/HCPCS: 99283

== ENCOUNTER 2017-11-25 20:42 | Emergency (ER) | payer SELFPAY ==
--- OUTSIDE RECORDS SUMMARY | 2017-11-25 20:45 | XMS REPORT | Continuity of Care Document ---
:1985 Author Organization Interface Problems Problem Status Onset Classification Date Comments Source Date Reported Discharge 03/29/19 04/01/2016 [facility] Diagnosis: Wrist 17 pain, right RIGHT HAND PAIN Active 03/29/19 [facility] 17 Discharge 12/02/19 12/04/2014 [facility] Diagnosis: Acute 15 [facility] anxiety Discharge 12/02/19 12/04/2014 [facility] Diagnosis: 15 [facility] Cocaine abuse Discharge 12/02/19 12/04/2014 [facility] Diagnosis: [address] [place] [address] Marijuana abuse Discharge 12/02/19 12/04/2014 [facility] Diagnosis: KRISTA 15 [place] Discharge 12/02/19 12/04/2014 [facility] Diagnosis: [address] [place] [address] Benzodiazepine abuse Discharge 12/02/19 12/04/2014 [facility] Diagnosis: 15 [facility] Elevated CK ANXIETY Active 12/02/19 [facility] 15 [facility] Medications Medication Details Route Status Patient Ordering Order Source Instructions Provider Date tramadol 50 mg=1 Active hydrochloride 50 tab, PO, 017 [facility] Oral Tablet Q6H, PRN Pain, # 12 tab, 0 Refill(s) Morphine 4 mg, Inactive Route: IM, 017 ONCE, Dosing Weight 96.364, kg, Priority: STAT, Start date: 03/29/16 11:46:00 CHILD CARE DIRECTOR, Stop date: 03/29/16 11:46:00 CHILD CARE DIRECTOR Ibuprofen 800 mg, 2 Inactive tab, 017 Route: PO, Drug form: TAB, ONCE, Dosing Weight 96.364, kg, Priority: STAT, Start date: 03/29/16 10:48:00 CHILD CARE DIRECTOR, Stop date: 03/29/16 10:48:00 CSTNotes: (Same as: Motrin) "Do Not Crush&quot ; Give with food. Acetaminophen 1 tab, Inactive 325 MG / Route: PO, 017 Hydrocodone Drug Form: Bitartrate 5 MG TAB, Oral Tablet Dosing [Cocoa 5/325] Weight 96.364, kg, ONCE, STAT, Start date: 03/29/16 10:48:00 CHILD CARE DIRECTOR, Stop date: 03/29/16 10:48:00 CSTNotes: (Same as: Cocoa 325/5) Do not exceed 4gm/day of acetaminop hen. Sodium Chloride 1,000 mL, Inactive [facility] 0.154 MEQ/ML 1,000 015 [place] Injectable ml/hr, Solution Infuse Over: 1 hr, Route: IV, 1,000, Drug form: INJ, ONCE, Priority: STAT, Dosing Weight 77.273 kg, Start date: 12/01/14 17:58:00, Duration: 1 doses or times, Stop date: 12/01/14 17:58:00 Potassium 20 mEq, 1 Inactive [facility] Chloride 20 MEQ tab, 015 [place] Extended Release Route: PO, Tablet Drug form: ERTAB, ONCE, Dosing Weight 77.273, kg, Priority: STAT, Start date: 12/01/14 17:57:00, Stop date: 12/01/14 17:57:00No masood: (Same as: K-Dur 20) "Do Not Crush" With food and full glass of water Ativan 1 mg, 0.5 Inactive [facility] mL, Route: 015 [place] IVP, Drug form: INJ, ONCE, Dosing Weight 77.273, kg, Priority: STAT, Start date: 12/01/14 17:03:00, Stop date: 12/01/14 17:03:00No masood: (Same as: Ativan) Sodium Chloride 1,000 mL, Inactive [facility] 0.154 MEQ/ML 1,000 015 [place] Injectable ml/hr, Solution Infuse Over: 1 hr, Route: IV, 1,000, Drug form: INJ, ONCE, Priority: STAT, Dosing Weight 77.273 kg, Start date: 12/01/14 16:37:00, Duration: 1 doses or times, Stop date: 12/01/14 16:37:00 Allergies, Adverse Reactions, Alerts Substance Category Reaction Severity Reaction Status Date Comments Source type Reported Immunizations Immunization Date Given Site Status Last Updated Comments Source Results Order Name Results Value Reference Date Interpretation Comments Source Range Wrist Wrist Patient Name: SUSAN LOPEZ 03/29 - complete complete DX /2016 - [facility] : 1985; Age: 31 years y/o Male MR: [id number] Read by: Pola Cancino MD Dictated Date/time: 03/29/16 11:30 Electronically Signed by: Pola Cancino MD 03/29/16 11:31 FINAL REPORT Study: Wrist complete DX 03/29/2016 10:48 AM CHILD CARE DIRECTOR Ordering Physician: Clinical Indication: Pain and swelling; Comparison: None 4 views of the right wrist are submitted. Nonspecific soft tissue swelling is noted. There is no bony fracture subluxation or lesion otherwise. Joint spaces are normal. No periarticular erosion or lesion. IMPRESSION: Nonspecific soft tissue swelling. SL: [id number] CARDIAC Total CK 1758 12 - 191 12/02 ENZYMES unit/L /2014 [facility] CARDIAC Total CK 2623 12 - 191 12/01 ENZYMES unit/L /2014 [facility] CHEM PANEL B/C Ratio 14 6 - 25 12/01 [facility] CHEM PANEL A/G Ratio 1.1 0.7 - 1.6 12/01 [facility] CHEM PANEL Globulin 4.3 g/dL 2.0 - 4.0 12/01 [facility] CHEM PANEL AGAP 13.2 meq/L 10.0 - 12/01 MH 20.0 /2014 [facility] CHEM PANEL Total 9.2 g/dL 6.4 - 8.4 12/01 [facility] CHEM PANEL BUN 22 mg/dL 7 - 22 12/01 [facility] CHEM PANEL Bili Total 0.7 mg/dL 0.2 - 1.3 12/01 [facility] CHEM PANEL Alk Phos 115 unit/L 39 - 136 12/01 [facility] CHEM PANEL AST 57 unit/L 0 - 37 12/01 [facility] CHEM PANEL ALT 46 unit/L 0 - 65 12/01 [facility] CHEM PANEL eGFR 58 12/01 Result Comment: The eGFR is calculated using the CKD-EPI formula. In most young, healthy individuals the eGFR will be >90 mL/ min/1.73m2. The eGFR declines with age. An eGFR of 60-89 may be normal in mL/min/1. some populations, particularly the elderly, for whom the CKD-EPI formula has not been extensively validated. Use of the eGFR is not recommended in the following populations: [address] Individuals with unstable creatinine concentrations, including patients and those with serious co-morbid conditions. Patients with extremes in muscle mass or diet. The data above are obtained from the National Kidney Disease Education Program (NKDEP) which additionally recommends that when the eGFR is used in patients with extremes of body mass index for purposes of drug dosing, the eGFR should be multiplied by the estimated BMI. CHEM PANEL Calcium Lvl 10.4 mg/dL 8.5 - 10.5 12/01 [facility] CHEM PANEL Creatinine 1.6 mg/dL 0.5 - 1.4 12/01 Lvl [facility] CHEM PANEL Sodium Lvl 135 meq/L 135 - 145 12/01 [facility] CHEM PANEL Potassium 3.2 meq/L 3.5 - 5.1 12/01 [facility] CHEM PANEL Chloride Lvl 100 meq/L 95 - 109 12/01 [facility] CHEM PANEL Albumin Lvl 4.9 g/dL 3.5 - 5.0 12/01 [facility] CHEM PANEL CO2 25 meq/L 24 - 32 12/01 [facility] CHEM PANEL Glucose Lvl 134 mg/dL 70 - 99 12/01 [facility] DRUG UDS Note See Note 12/01 [place] (12/01/14 2:10 PM) [facility] DRUG U Phencyc Negative Negative 12/01 SCREEN Scr [facility] (12/01/14 2:10 PM) DRUG U Cannab Scr Positive Negative 12/01 [facility] (12/01/14 2:10 PM) DRUG U Opiate Scr Negative Negative 12/01 [facility] (12/01/14 2:10 PM) DRUG U Cocaine Positive Negative 12/01 SCREEN Scr [facility] (12/01/14 2:10 PM) DRUG U Benzodia Positive Negative 12/01 SCREEN Scr [facility] (12/01/14 2:10 PM) DRUG U Gayle Scr Negative Negative 12/01 [facility] (12/01/14 2:10 PM) DRUG U Amph Scr Negative Negative 12/01 [facility] (12/01/14 2:10 PM) HEMATOLOGY Basophils # 0.0 K/CMM 0.0 - 0.2 12/01 /2014 [facility] HEMATOLOGY Lymphocytes 2.8 K/CMM 1.0 - 5.5 12/01 MH # /2014 [facility] HEMATOLOGY Monocytes # 1.0 K/CMM 0.0 - 0.8 12/01 [facility] HEMATOLOGY Eosinophils 0.0 K/CMM 0.0 - 0.5 12/01 MH # /2014 [facility] HEMATOLOGY Eosinophils 0.1 % 0.0 - 4.0 12/01 [facility] HEMATOLOGY Basophils 0.3 % 0.0 - 1.0 12/01 [facility] HEMATOLOGY Segs-Bands # 8.5 K/CMM 1.5 - 8.1 12/01 [facility] HEMATOLOGY Segs 68.4 % 45.0 - 12/01 MH 75.0 [facility] HEMATOLOGY Lymphocytes 22.9 % 20.0 - 12/01 MH 40.0 /2014 [facility] HEMATOLOGY Monocytes 8.3 % 2.0 - 12.0 12/01 [facility] HEMATOLOGY MCH 27.7 pg 27.0 - 12/01 MH 31.0 [facility] HEMATOLOGY MPV 10.1 fL 7.4 - 10.4 12/01 [facility] HEMATOLOGY RBC 5.96 M/CMM 4.70 - 12/01 MH 6.10 [facility] HEMATOLOGY Hgb 16.5 g/dL 14.0 - 12/01 MH 18.0 /2014 [facility] HEMATOLOGY Hct 50.6 % 42.0 - 12/01 MH 54.0 [facility] HEMATOLOGY MCV 84.8 fL 80.0 - 12/01 94.0 [facility] HEMATOLOGY MCHC 32.7 g/dL 32.0 - 12/01 MH 36.0 [facility] HEMATOLOGY RDW 13.5 % 11.5 - 12/01 MH 14. [facility] HEMATOLOGY Platelet 255 K/CMM 133 - 450 12/01 [facility] HEMATOLOGY WBC 12.4 K/CMM 3.7 - 10.4 12/01 [facility] URINE AND UA Ketones Negative 12/01 STOOL [facility] URINE AND UA Color Awilda 12/01 STOOL [facility] URINE AND UA <=1.0 0.1 - 1.0 12/01 STOOL Urobilinogen mg/dL [facility] URINE AND UA Sq Epi None Seen 12/01 [facility] URINE AND UA WBC 1 /HPF 0 - 5 12/01 [facility] URINE AND UA Nitrite Negative Negative 12/01 [place] (12/01/14 2:10 PM) [facility] URINE AND UA Leuk Est Negative Negative 12/01 [place] (12/01/14 2:10 PM) [facility] URINE AND UA Mucus Many /LPF None Seen 12/01 STOOL /LPF [facility] URINE AND UA RBC 2 /HPF 0 - 2 12/01 [facility] URINE AND UA Protein >=300 Negative 12/01 STOOL mg/dL mg/dL [facility] Blood Small [facility] 2:10 [facility] AND UA Bili Negative Negative [facility]/01 [facility] (12/01/14 2:10 PM) URINE AND UA Glucose Negative Negative 12/01 [facility] mg/dL mg/dL [facility] URINE AND UA pH 5.0 5.0 - 8.0 12/01 [facility] URINE AND UA Turbidity Marked Clear 12/01 [facility]12/01/14 2:10 PM) URINE AND UA Spec Grav 1.046 <=1.030 12/01 [facility] Chest 2 Chest 2 CLINICAL HISTORY: Chest pain. 12/01 - views DX views DX - [facility] : 1985. Read by: Fredrick Johnson MD Dictated Date/time: 12/01/14 17:10 Electronically Signed by: Fredrick Johnson MD 12/01/14 17:10 FINAL REPORT TECHNIQUE: PA and lateral views of the chest. Heart size is normal. No acute consolidation. No pleural effusion. IMPRESSION: 1. No active disease in the chest. Vital Signs Vital Sign Value Date Comments Source Systolic (mm Hg) 125 03/29/2016 [facility] Diastolic (mm Hg) 90 03/29/2016 [facility] Temperature Oral (F) 98.2 F 03/29/2016 [facility] Respitory Rate 18 03/29/2016 [facility] Heart Rate 82 03/29/2016 [facility] BMI Calculated 30.48 03/29/2016 [facility] Height 177.8 cm 03/29/2016 [facility] Weight 96.364 03/29/2016 [facility] Temperature Oral (F) 98.3 F 03/29/2016 [facility] Heart Rate 85 03/29/2016 [facility] Respitory Rate 18 03/29/2016 [facility] Systolic (mm Hg) 132 03/29/2016 [facility] Diastolic (mm Hg) 85 03/29/2016 [facility] Respitory Rate 18 12/02/2014 [facility] Heart Rate 73 12/02/2014 [facility] Systolic (mm Hg) 134 12/02/2014 [facility] Diastolic (mm Hg) 87 12/02/2014 [facility] Heart Rate 80 12/01/2014 [facility] Respitory Rate 18 12/01/2014 [facility] Systolic (mm Hg) 126 12/01/2014 [facility] Diastolic (mm Hg) 84 12/01/2014 [facility] Temperature Oral (F) 99.2 F 12/01/2014 [facility] Height 177.8 cm 12/01/2014 [facility] BMI Calculated 24.44 12/01/2014 [facility] Weight 77.273 12/01/2014 [facility] Respitory Rate 16 12/01/2014 [facility] Heart Rate 76 12/01/2014 [facility] Temperature Oral (F) 99.0 F 12/01/2014 [facility] Systolic (mm Hg) 139 12/01/2014 [facility] Diastolic (mm Hg) 89 12/01/2014 [facility] Encounters Location Location Encounter Encounter Reason Attending ADM DC Status Source Details Type Number For Provider Date Date Visit [facility] [id number] Mochristian Amro 12/01 12/02 [facility] Emergency /2014 [facility] [id number] Sadia 03/29 03/29 [facility] Folorunsho /2016 [facility] Procedures Procedure Code Date Perfomer Comments Source
--- OUTSIDE RECORDS SUMMARY | 2017-11-25 20:46 | XMS REPORT ---
:1985 [facility] Address [address] [place] [address] Care Team Providers Name Role Phone Unavailable Unavailable Unavailable Problems This patient has no known problems. Allergies, Adverse Reactions, Alerts This patient has no known allergies or adverse reactions. Medications This patient has no known medications. Encounters Start End Encounter Admission Attending Care Care Encounter Date/Time Date/Time Type Type Clinicians Facility Department ID 2016-09-30 2016-10-05 Outpatient [facility] [id number] 00:00:00 00:00:00
--- NOTE | 2017-11-25 21:15 | ER ---
Nurse's Notes [facility] Name: Kurtis Albert Jr Age: 32 yrs Sex: Male : 1985 Arrival Date: 11/25/2017 Time: 20:43 Bed 12 Private MD: Diagnosis: Pain in right foot Presentation: 11/25 20:49 Presenting complaint: Patient states: RIGHT heel pain x 2 weeks, shooting pain while sr5 walking or palpation. Wears steel-toed boots for work. Reports no visible injury. Onset of symptoms was November 14, 2017. 20:49 Method Of Arrival: Ambulatory sr5 20:49 Acuity: GOGO 4 sr5 21:18 Transition of care: patient was not received from another setting of care. Risk mg2 Assessment: Do you want to hurt yourself or someone else? Patient reports no desire to harm self or others. Initial Sepsis Screen: Does the patient meet any 2 criteria? No. Patient's initial sepsis screen is negative. Does the patient have a suspected source of infection? No. Patient's initial sepsis screen is negative. Care prior to arrival: None. Triage Assessment: 20:52 General: Appears uncomfortable, Behavior is calm, cooperative. Pain: Complains of pain sr5 in heel of right foot. Neuro: No deficits noted. Cardiovascular: No deficits noted. Respiratory: No deficits noted. Historical: - Allergies: 20:52 No Known Allergies; sr5 - Home Meds: 20:52 Zantac 75 MG Oral 1 cap once daily [Active]; sr5 - PMHx: 20:52 GERD; sr5 - PSHx: 20:52 None; sr5 - Immunization history:: Flu vaccine status is unknown. - Social history:: Smoking status: unknown. - Ebola Screening: : No symptoms or risks identified at this time. Screenin:17 Abuse screen: Denies threats or abuse. Denies injuries from another. Nutritional mg2 screening: No deficits noted. Tuberculosis screening: No symptoms or risk factors identified. Fall Risk None identified. Assessment: 21:17 General: Appears in no apparent distress. comfortable, Behavior is calm, cooperative. mg2 Pain: Complains of pain in right foot and heel of right foot Pain does not radiate. Pain currently is 3 out of 10 on a pain scale. Neuro: Level of Consciousness is awake, alert, obeys commands, Oriented to person, place, time. Cardiovascular: No deficits noted. Respiratory: No deficits noted. GI: No deficits noted. : No deficits noted. EENT: No deficits noted. Derm: Skin is intact, is healthy with good turgor, Skin is pink, warm \T\ dry. normal. Musculoskeletal: Circulation, motion, and sensation intact. Vital Signs: 20:52 BP 145 / 94; Pulse 66; Resp 18; Temp 97.0; Pulse Ox 100% ; Weight 122.47 kg; Height 5 sr5 ft. 2 in. (157.48 cm); Pain 10/10; 20:52 Body Mass Index 49.38 (122.47 kg, 157.48 cm) sr5 ED Course: 20:43 Patient arrived in ED. am2 20:51 Triage completed. sr5 20:52 Arm band placed on. sr5 20:54 Leslee Andino FNP-C [facility]. snw 20:54 Sabino Selby MD is Attending Physician. snw 20:56 Hima Benitez, RN is Primary Nurse. mg2 21:18 Patient has correct armband on for positive identification. Door closed. mg2 21:18 No provider procedures requiring assistance completed. Patient did not have IV access mg2 during this emergency room visit. Administered Medications: No medications were administered Outcome: 21:15 Discharge ordered by . snw 21:36 Discharged to home ambulatory, with family. mg2 21:36 Condition: stable 21:36 Discharge instructions given to patient, family, Instructed on discharge instructions, follow up and referral plans. medication usage, Demonstrated understanding of instructions, follow-up care, medications, Prescriptions given X 1. 21:37 Patient left the ED. mg2 Signatures: Leslee Andino FNP-C [employer]-Csnw Naman Monreal RN RN sr5 Britney Mckeon am2 Hima Benitez, NAHUN RN mg2
--- NOTE | 2017-11-25 21:15 | EDPHYS ---
Physician Documentation [facility] Name: Kurtis Albert Jr Age: 32 yrs Sex: Male : 1985 Arrival Date: 11/25/2017 Time: 20:43 Bed 12 Private MD: ED Physician Sabino Selby HPI: 11/25 21:25 This 32 yrs old Male presents to ER via Ambulatory with complaints of Foot snw Pain - right heel. 21:25 The patient presents with pain, that is acute. The complaints affect the right heel and snw medial aspect of right foot. Context: The problem was sustained at an unknown site, resulted from an unknown cause, the patient can partially bear weight, the patient is able to ambulate, Problem is a result from a previous injury: No. Onset: The symptoms/episode began/occurred suddenly, 2 week(s) ago, and became persistent. Modifying factors: the symptoms are aggravated by first steps of the day. Associated signs and symptoms: The patient has no apparent associated signs or symptoms. Severity of symptoms: At their worst the symptoms were mild. It is unknown whether or not the patient has had similar symptoms in the past. It is unknown whether or not the patient has recently seen a physician. Historical: - Allergies: 20:52 No Known Allergies; sr5 - Home Meds: 20:52 Zantac 75 MG Oral 1 cap once daily [Active]; sr5 - PMHx: 20:52 GERD; sr5 - PSHx: 20:52 None; sr5 - Immunization history:: Flu vaccine status is unknown. - Social history:: Smoking status: unknown. - Ebola Screening: : No symptoms or risks identified at this time. ROS: 21:25 Constitutional: Negative for fever, chills, and weight loss, Eyes: Negative for injury, snw pain, redness, and discharge, ENT: Negative for injury, pain, and discharge, Neck: Negative for injury, pain, and swelling, Cardiovascular: Negative for chest pain, palpitations, and edema, Respiratory: Negative for shortness of breath, cough, wheezing, and pleuritic chest pain, Abdomen/GI: Negative for abdominal pain, nausea, vomiting, diarrhea, and constipation, Back: Negative for injury and pain, : Negative for injury, bleeding, discharge, and swelling, Skin: Negative for injury, rash, and discoloration, Neuro: Negative for headache, weakness, numbness, tingling, and seizure. 21:25 MS/extremity: Positive for pain, of the heel of right foot. Exam: 21:25 Constitutional: This is a well developed, well nourished patient who is awake, alert, snw and in no acute distress. Head/Face: Normocephalic, atraumatic. Eyes: Pupils equal round and reactive to light, extra-ocular motions intact. Lids and lashes normal. Conjunctiva and sclera are non-icteric and not injected. Cornea within normal limits. Periorbital areas with no swelling, redness, or edema. ENT: Nares patent. No nasal discharge, no septal abnormalities noted. Tympanic membranes are normal and external auditory canals are clear. Oropharynx with no redness, swelling, or masses, exudates, or evidence of obstruction, uvula midline. Mucous membranes moist. Neck: Trachea midline, no thyromegaly or masses palpated, and no cervical lymphadenopathy. Supple, full range of motion without nuchal rigidity, or vertebral point tenderness. No Meningismus. Chest/axilla: Normal chest wall appearance and motion. Nontender with no deformity. No lesions are appreciated. Cardiovascular: Regular rate and rhythm with a normal S1 and S2. No gallops, murmurs, or rubs. Normal PMI, no JVD. No pulse deficits. Respiratory: Lungs have equal breath sounds bilaterally, clear to auscultation and percussion. No rales, rhonchi or wheezes noted. No increased work of breathing, no retractions or nasal flaring. Abdomen/GI: Soft, non-tender, with normal bowel sounds. No distension or tympany. No guarding or rebound. No evidence of tenderness throughout. Back: No spinal tenderness. No costovertebral tenderness. Full range of motion. Skin: Warm, dry with normal turgor. Normal color with no rashes, no lesions, and no evidence of cellulitis. Neuro: Awake and alert, GCS 15, oriented to person, place, time, and situation. Cranial nerves II-XII grossly intact. Motor strength 5/5 in all extremities. Sensory grossly intact. Cerebellar exam normal. Normal gait. Psych: Awake, alert, with orientation to person, place and time. Behavior, mood, and affect are within normal limits. 21:25 Musculoskeletal/extremity: Extremities: grossly normal except: noted in the heel of right foot: contusion, tenderness, ROM: no acute changes, Circulation is intact in all extremities. Sensation intact. Vital Signs: 20:52 BP 145 / 94; Pulse 66; Resp 18; Temp 97.0; Pulse Ox 100% ; Weight 122.47 kg; Height 5 sr5 ft. 2 in. (157.48 cm); Pain 10/10; 20:52 Body Mass Index 49.38 (122.47 kg, 157.48 cm) sr5 MDM: 20:58 Patient medically screened. snw 21:27 Data reviewed: vital signs, nurses notes. Data interpreted: Pulse oximetry: on room air snw is 100 %. Interpretation: normal. Counseling: I had a detailed discussion with the patient and/or guardian regarding: the historical points, exam findings, and any diagnostic results supporting the discharge/admit diagnosis, the presence of at least one elevated blood pressure reading (>120/80) during this emergency department visit, the need for outpatient follow up, to return to the emergency department if symptoms worsen or persist or if there are any questions or concerns that arise at home. Special discussion: I have referred the patient to see his PCP for further evaluation of high blood pressure. Based on the history and exam findings, there is no indication for further emergent testing or inpatient evaluation. I discussed with the patient/guardian the need to see the primary care provider for further evaluation of the symptoms. Administered Medications: No medications were administered Disposition: 11/26 01:02 Co-signature as Attending Physician, Sabino Selby MD. rn Disposition: 11/25/17 21:15 Discharged to Home. Impression: Pain in right foot. - Condition is Stable. - Discharge Instructions: Foot Contusion, Musculoskeletal Pain, Plantar Fasciitis, Cryotherapy, Heat Therapy. - Prescriptions for Motrin IB 200 mg Oral Tablet - take 2 tablet by ORAL route every 8 hours As needed as needed with food; 40 tablet. - Work release form, Medication Reconciliation Form, Thank You Letter, Antibiotic Education, Prescription Opioid Use form. - Follow up: Private Physician; When: 1 - 2 days; Reason: Recheck today's complaints, Continuance of care, Re-evaluation by your physician. Follow up: Emergency Department; When: As needed; Reason: Worsening of condition. Signatures: Sina, Leslee, PAPER FOLDING MACHINE OPERATOR-C PAPER FOLDING MACHINE OPERATOR-Csnw Sabino Selby MD MD rn Naman Monreal RN RN sr5 Hima Benitez, RN RN mg2 Corrections: (The following items were deleted from the chart) 11/25 21:37 21:15 11/25/2017 21:15 Discharged to Home. Impression: Pain in right foot. Condition is mg2 Stable. Forms are Medication Reconciliation Form, Thank You Letter, Antibiotic Education, Prescription Opioid Use. Follow up: Private Physician; When: 1 - 2 days; Reason: Recheck today's complaints, Continuance of care, Re-evaluation by your physician. Follow up: Emergency Department; When: As needed; Reason: Worsening of condition. snw
== END 2017-11-25 21:37 | disposition home or self-care (01) ==
LOC: ER 20:42
DX: M79.671 Pain in right foot (principal); K21.9 Gastro-esophageal reflux disease without esophagitis
CPT/HCPCS: 99282

== ENCOUNTER 2018-04-15 12:06 | Emergency (ER) | payer SELFPAY ==
--- OUTSIDE RECORDS SUMMARY | 2018-04-15 12:11 | XMS REPORT ---
:1985 [facility] [address] [place] [address] Care Team Providers Name Role Phone Unavailable Unavailable Unavailable Problems This patient has no known problems. Allergies, Adverse Reactions, Alerts This patient has no known allergies or adverse reactions. Medications This patient has no known medications. Encounters Start End Encounter Admission Attending Care Care Encounter Date/Time Date/Time Type Type Clinicians Facility Department ID 2016-09-30 2016-10-05 Outpatient [facility] [id number] 00:00:00 00:00:00
--- NOTE | 2018-04-15 13:55 | RAD REPORT ---
EXAM DESCRIPTION: RAD - Foot Right 3 View - 04/15/2018 1:48 pm CLINICAL HISTORY: PAIN COMPARISON: No comparisons FINDINGS: Small linear radiodensity is seen in the soft tissues of the great toe probably representi ng small foreign body. No acute fracture or dislocation. A small plantar calcaneal spur present.
--- NOTE | 2018-04-15 14:30 | EDPHYS ---
Physician Documentation [facility] Name: Kurtis Albert Jr Age: 33 yrs Sex: Male : 1985 Arrival Date: 04/15/2018 Time: 12:09 Bed 14 Private MD: None, None ED Physician Grady Jacob HPI: 04/15 14:23 This 33 yrs old Male presents to ER via Ambulatory with complaints of Foot kb Pain. 14:25 The patient presents with pain, that is acute, tenderness. The complaints affect the kb left foot. Context: The problem was sustained at home, resulted from an unknown cause, Mechanism of Injury: Unknown the patient can fully bear weight. Modifying factors: The symptoms are alleviated by nothing, the symptoms are aggravated by nothing. 14:28 Onset: The symptoms/episode began/occurred 5 month(s) ago. Associated signs and kb symptoms: The patient has no apparent associated signs or symptoms. Severity of symptoms: At their worst the symptoms were moderate, in the emergency department the symptoms are unchanged. The patient has not experienced similar symptoms in the past. The patient has not recently seen a physician. Historical: - Allergies: 12:22 No Known Allergies; hb - Home Meds: 12:22 Zantac 75 MG Oral 1 cap once daily [Active]; hb - PMHx: 12:22 GERD; hb - PSHx: 12:22 None; hb - Immunization history:: Adult Immunizations up to date. - Social history:: Patient/guardian denies using. - Ebola Screening: : No symptoms or risks identified at this time. ROS: 14:21 Constitutional: Negative for fever, chills, and weight loss, Neck: Negative for injury, kb pain, and swelling, Cardiovascular: Negative for chest pain, palpitations, and edema, Respiratory: Negative for shortness of breath, cough, wheezing, and pleuritic chest pain, Abdomen/GI: Negative for abdominal pain, nausea, vomiting, diarrhea, and constipation, Skin: Negative for injury, rash, and discoloration, Neuro: Negative for headache, weakness, numbness, tingling, and seizure. 14:21 MS/extremity: Positive for pain, tenderness, of the heel of right foot. Exam: 14:21 Constitutional: This is a well developed, well nourished patient who is awake, alert, kb and in no acute distress. Head/Face: Normocephalic, atraumatic. Chest/axilla: Normal chest wall appearance and motion. Nontender with no deformity. No lesions are appreciated. Cardiovascular: Regular rate and rhythm with a normal S1 and S2. No gallops, murmurs, or rubs. Normal PMI, no JVD. No pulse deficits. Respiratory: Lungs have equal breath sounds bilaterally, clear to auscultation and percussion. No rales, rhonchi or wheezes noted. No increased work of breathing, no retractions or nasal flaring. Abdomen/GI: Soft, non-tender, with normal bowel sounds. No distension or tympany. No guarding or rebound. No evidence of tenderness throughout. Skin: Warm, dry with normal turgor. Normal color with no rashes, no lesions, and no evidence of cellulitis. Neuro: Awake and alert, GCS 15, oriented to person, place, time, and situation. Cranial nerves II-XII grossly intact. Motor strength 5/5 in all extremities. Sensory grossly intact. Cerebellar exam normal. Normal gait. 14:21 Musculoskeletal/extremity: Extremities: grossly normal except: noted in the heel of right foot: pain, tenderness, ROM: intact in all extremities, Circulation is intact in all extremities. Sensation intact. Weight bearing: able to fully bear weight. Vital Signs: 12:22 BP 156 / 98; Pulse 85; Resp 16; Temp 98.2; Pulse Ox 100% on R/A; Pain 9/10; hb MDM: 13:24 Patient medically screened. kb 14:21 Data reviewed: vital signs, nurses notes. Data interpreted: Pulse oximetry: on room air kb is 100 %. Interpretation: normal. Counseling: I had a detailed discussion with the patient and/or guardian regarding: the historical points, exam findings, and any diagnostic results supporting the discharge/admit diagnosis, radiology results, the need for outpatient follow up, a ball ender, to return to the emergency department if symptoms worsen or persist or if there are any questions or concerns that arise at home. 04/15 12:23 Order name: Foot Right 3 View XRAY; Complete Time: 13:58 hb Administered Medications: No medications were administered Disposition: 04/16 06:37 Co-signature as Attending Physician, Grady Jacob MD I agree with the assessment and kdr plan of care. Disposition: 04/15/18 14:29 Discharged to Home. Impression: Pain in left foot. - Condition is Stable. - Discharge Instructions: Musculoskeletal Pain, Plantar Fasciitis, Cryotherapy, [id number]. - Medication Reconciliation Form, Thank You Letter, Antibiotic Education, Prescription Opioid Use, Work release form form. - Follow up: Emergency Department; When: As needed; Reason: Worsening of condition. Follow up: Private Physician; When: 2 - 3 days; Reason: Recheck today's complaints, Continuance of care, Re-evaluation by your physician. Signatures: Dispatcher [employer] EDMS Dorys Roman, RESIDENTIAL HOUSEKEEPER-C RESIDENTIAL HOUSEKEEPER-Jan Boles RN RN sg Grady Jacob MD MD [facility] Cassia De Anda RN RN Corrections: (The following items were deleted from the chart) 04/15 14:32 14:29 04/15/2018 14:29 Discharged to Home. Impression: Pain in left foot. Condition is sg Stable. Forms are Medication Reconciliation Form, Thank You Letter, Antibiotic Education, Prescription Opioid Use. Follow up: Emergency Department; When: As needed; Reason: Worsening of condition. Follow up: Private Physician; When: 2 - 3 days; Reason: Recheck today's complaints, Continuance of care, Re-evaluation by your physician. kb
--- NOTE | 2018-04-15 14:30 | ER ---
Nurse's Notes [facility] Name: Kurtis Albert Jr Age: 33 yrs Sex: Male : 1985 Arrival Date: 04/15/2018 Time: 12:09 Bed 14 Private MD: None, None Diagnosis: Pain in left foot Presentation: 04/15 12:21 Presenting complaint: Worsening right heel pain x 1 month. Transition of care: patient hb was not received from another setting of care. Onset of symptoms is unknown. Risk Assessment: Do you want to hurt yourself or someone else? Patient reports no desire to harm self or others. Care prior to arrival: None. 12:21 Method Of Arrival: Ambulatory hb 12:21 Acuity: GOGO 4 hb 13:10 Initial Sepsis Screen: Does the patient meet any 2 criteria? No. Patient's initial sg sepsis screen is negative. Does the patient have a suspected source of infection? No. Patient's initial sepsis screen is negative. Historical: - Allergies: 12:22 No Known Allergies; hb - Home Meds: 12:22 Zantac 75 MG Oral 1 cap once daily [Active]; hb - PMHx: 12:22 GERD; hb - PSHx: 12:22 None; hb - Immunization history:: Adult Immunizations up to date. - Social history:: Patient/guardian denies using. - Ebola Screening: : No symptoms or risks identified at this time. Screenin:10 Abuse screen: Denies threats or abuse. Denies injuries from another. sg 13:10 Nutritional screening: No deficits noted. sg Assessment: 13:10 General: Appears in no apparent distress. comfortable, well groomed, well developed, sg well nourished, Behavior is calm, cooperative, appropriate for age. Pain: Complains of pain in heel of right foot Quality of pain is described as aching, tender. 13:31 Neuro: Level of Consciousness is awake, alert, obeys commands, Oriented to person, sg place, time, situation, Last Dipper are equal bilaterally Speech is normal, Facial symmetry appears normal. Cardiovascular: Capillary refill is brisk in bilateral fingers Patient's skin is warm and dry. Chest pain is denied. Respiratory: Airway is patent Respiratory effort is even, unlabored, Respiratory pattern is regular, symmetrical. GI: No signs and/or symptoms were reported involving the gastrointestinal system. : No signs and/or symptoms were reported regarding the genitourinary system. EENT: No signs and/or symptoms were reported regarding the EENT system. Derm: Skin is pink, warm \T\ dry. Musculoskeletal: No signs and/or symptoms reported regarding the musculoskeletal system. 13:35 Reassessment: xray at bedside at this time. sg Vital Signs: 12:22 BP 156 / 98; Pulse 85; Resp 16; Temp 98.2; Pulse Ox 100% on R/A; Pain 9/10; hb ED Course: 12:09 Patient arrived in ED. mr 12:09 None, None is Private Physician. mr 12:21 Triage completed. hb 13:10 Patient has correct armband on for positive identification. Bed in low position. Call sg light in reach. 13:10 Arm band placed on. sg 13:10 No provider procedures requiring assistance completed. sg 13:19 Jan Herrera, RN is Primary Nurse. sg 13:24 Dorys Roman FNP-C is PHCP. kb 13:24 Grady Jacob MD is Attending Physician. kb 13:45 Awaiting radiology results. sg 13:48 Foot Right 3 View XRAY In Process Unspecified. EDMS Administered Medications: No medications were administered Outcome: 14:29 Discharge ordered by MD. kb 14:32 Patient left the ED. sg Signatures: Dispatcher [employer] EDMS Dorys Roman FNP-C FNP-Jan Boles RN NAHUN Jenny Rosas De AndaCassia RN NAHUN Corrections: (The following items were deleted from the chart) 13:30 12:14 Patient's name was called from ER lobby. No response. Unable to locate patient. sg Will disposition as left without being seen by a provider. hb 13:32 13:10 Pain: Complains of pain in heel of right foot sg sg
== END 2018-04-15 14:32 | disposition home or self-care (01) ==
LOC: ER 12:06
DX: M79.672 Pain in left foot (principal); K21.9 Gastro-esophageal reflux disease without esophagitis
CPT/HCPCS: 99282